=== PATIENT | male | born 1985 | race Hispanic/Latino ===

== ENCOUNTER 2023-08-29 12:48 | Emergency (ER) | payer OTHER ==
[~2023-08-29] VITALS: Ht 167.6 cm; Wt 67.1 kg
[2023-08-29] MEDS: MORPHINE 4 MG SYG IVP ONE (13:49)
[2023-08-29] MEDS: ONDANSETRON 4MG INJ IVP ONE (13:49)
[2023-08-29] MEDS: CEFAZOLIN SODIUM 2 GM VIAL IVPB ONE ×2 (13:56→19:36)
[2023-08-29] MEDS: DIPH,PERTUSS(ACELL),TET VAC/PF 0.5 ML VIAL IM ONE (14:00)
[2023-08-29 14:01] LABS: HEMATOCRIT 45.6 % (42-54); MEAN CORPUSCULAR HEMOGLOBIN 30.4 pg (27.0-33.0); MEAN CORPUSCULAR HGB CONC 35.1 g/dL (32.0-36.0); MEAN CORPUSCULAR VOLUME 86.7 fL (79-99); PLATELET COUNT (AUTO) 289 K/uL (130-400); RED BLOOD CELL COUNT(AUTO) 5.26 MIL/uL (4.50-6.20); RED CELL DISTRIBUTION WIDTH 12.4 % (11.0-15.5); WHITE BLOOD COUNT (AUTO) 10.4 K/uL (4.8-10.8)
[2023-08-29 14:11] LABS: CREATININE 0.9 mg/dL (0.5-1.3); POTASSIUM 3.8 mmol/L (3.5-5.1)
[2023-08-29 14:16] LABS: BILIRUBIN,TOTAL 0.9 mg/dL (0.2-1.0); TOTAL PROTEIN, SERUM 7.9 g/dL (6.0-8.3)
[2023-08-29 14:34] LABS: BAND NEUTROPHILS % (MANUAL) 1 % (0-2); EOSINOPHILS % (MANUAL) 4 % (1-6); LYMPHOCYTES % (MANUAL) 30 % (22-44); MAN.DIFF COMMENT-IMPRESSION MANUAL DIFFERENTIAL; MONOCYTES % (MANUAL) 3 % (2-9); SEGMENTED NEUTROPHILS % 62 % (40-70); TOTAL CELLS COUNTED 100
[2023-08-29 14:35] LABS: PLATELET MORPHOLOGY COMMENT ADEQUATE; WBC MORPHOLOGY CONSISTENT W/DIFF
[2023-08-29] MEDS: 0.9%NACL 1000ML 1,000 ML IV SCH (18:26)
[2023-08-29] MEDS: LORAZEPAM 2 MG/ML 1 ML VIAL IVP ONE (18:27)
[2023-08-29] MEDS ORDERED: CEPH500T PO (19:47)
[2023-08-29] MEDS ORDERED: HYDR-4060 PO (19:47)
[2023-08-29] MEDS ORDERED: IBUP-2070 PO (19:47)
[2023-08-29 20:12] VITALS: BP 147/91; PULSE 87; RESP 18; O2SAT 98
== END 2023-08-29 20:16 | disposition home or self-care (01) ==
LOC: EDH 12:48
DX: S62.631B Displaced fracture of distal phalanx of left index finger, initial encounter for open fracture (principal); I10 Essential (primary) hypertension; Z98.890 Other specified postprocedural states; X58.XXXA Exposure to other specified factors, initial encounter; Y93.89 Activity, other specified; Y92.89 Other specified places as the place of occurrence of the external cause; Y99.8 Other external cause status
CPT/HCPCS: 99285; 12042; 96365; 96375; 96366; 96361; 80053; 85025; 36415; 90715; 73130; 90471; J2405; J2060; J2270; J0690 ×2; 12002; 12032

== ENCOUNTER 2023-09-19 11:58 | Emergency (ER) | payer OTHER ==
[~2023-09-19] VITALS: Ht 167.6 cm; Wt 68.0 kg
[~2023-09-19 11:58] MED LIST: CEPH500T PO; HYDR-4060 PO; IBUP-2070 PO
[2023-09-19] MEDS: LIDOCAINE HCL 1% 20 ML VIAL INJ STA (12:23)
[2023-09-19 12:55] VITALS: BP 114/52; PULSE 78; RESP 20; O2SAT 98
[2023-09-19] MEDS: OCTYL 2-CYANOACRYLATE 1 EACH TP SCH (13:18)
[2023-09-19] MEDS ORDERED: CEPH500B PO (13:25)
== END 2023-09-19 13:30 | disposition home or self-care (01) ==
LOC: EDH 11:58
DX: S68.121D Partial traumatic metacarpophalangeal amputation of left index finger, subsequent encounter (principal); X58.XXXD Exposure to other specified factors, subsequent encounter
CPT/HCPCS: 12001; 99282